=== PATIENT | male | born 1980 | race Caucasian/White ===

== ENCOUNTER → 2024-06-30 10:01 | Outpatient (CLI) | payer OTHER, SELFPAY ==
--- NOTE | 2024-06-30 10:07 | DI.RAD.S_ITS ---
PROCEDURE: XR TIBIA FIBULA LT 2V INDICATIONS: Unspecified fracture of shaft of left tibia, initial encount TECHNIQUE: 2 views of the tibia and fibula were acquired. COMPARISON: None. FINDINGS: Bones: There are no osseous abnormalities Joints: The joint spaces are normal in width and alignment without arthritic change. Soft tissues: No soft tissue abnormality. IMPRESSION: Normal. Dictated by: Omar Lux M.D. on 07/03/2024 at 9:59 Approved by: Omar Lux M.D. on 07/03/2024 at 10:00
== END ==
PROVIDERS: Referring Provider Chiropractor; Visit Provider Chiropractor
DX: S82.202A Unspecified fracture of shaft of left tibia, initial encounter for closed fracture (principal); S82.402A Unspecified fracture of shaft of left fibula, initial encounter for closed fracture; X58.XXXA Exposure to other specified factors, initial encounter
CPT/HCPCS: 73590